=== PATIENT | female | born 1985 | race Caucasian/White ===

== ENCOUNTER 2018-03-20 06:07 | Inpatient (IN) | payer BC ==
[~2018-03-20] VITALS: Ht 167.6 cm; Wt 72.6 kg
[~2018-03-20 06:07] MED LIST: ACET-1718 PO; CALC-515 PO; IBUP800T37 PO; PREN1TAB50
[2018-03-20] MEDS ORDERED: LR(*) 1000 ML BAG 1,000 ML IV PRN (06:38)
[2018-03-20] MEDS ORDERED: OXYTOCIN 30 UNIT/D5LR 500 ML 500 ML IV PRN (06:38)
[2018-03-20] MEDS ORDERED: FAMOTIDINE(*) 20MG/50ML PREMIX 50 ML IVPB PRN (06:38)
[2018-03-20] MEDS ORDERED: DLR(*) 1000 ML BAG 1,000 ML IV PRN (06:38)
[2018-03-20] MEDS ORDERED: FENTANYL/ROPIVACAINE 100 ML BAG EPI PRN (06:40)
[2018-03-20] MEDS ORDERED: EPIDURAL KEYS XX PRN (06:40)
[2018-03-20] MEDS ORDERED: cefOXitin/DEX(*) 2GM/50ML PREM 50 ML IVPB PRN (06:40)
[2018-03-20] MEDS ORDERED: BUPIVACAINE 0.5% INJ 30ML VIAL EPI PRN (06:40)
[2018-03-20] MEDS ORDERED: FLUSH 10 ML SYR IVP PRN (06:40)
[2018-03-20] MEDS ORDERED: fentaNYL CITR 100 MCG/2 ML AMP IT PRN (06:40)
[2018-03-20] MEDS ORDERED: ePHEDrine 25 MG/5 ML DISP.SYR IVP PRN (06:40)
[2018-03-20] MEDS ORDERED: fentaNYL CITR 100 MCG/2 ML AMP IVP PRN (06:40)
[2018-03-20] MEDS ORDERED: METOCLOPRAMIDE 10 MG/2 ML SDV IVP PRN (06:40)
[2018-03-20] MEDS ORDERED: LIDOCAINE 1% LOCAL 300 MG/30ML INJ PRN (06:40)
[2018-03-20] MEDS ORDERED: BUPIVACAINE 0.25% MPF INJ EPI PRN (06:40)
[2018-03-20] MEDS ORDERED: LIDO/EPI 2% MPF 1:200,000 20ML EPI PRN (06:40)
[2018-03-20] MEDS ORDERED: LIDOCAINE/PF 2% 200MG/10ML AMP 200 MG/10 ML AMPUL EPI PRN (06:40)
[2018-03-20 06:53] LABS: PLATELET COUNT, AUTOMATED 252 K/uL (150-450)
[2018-03-20] MEDS ORDERED: METHYLERGONOVINE MAL 0.2MG/ML ONE (06:56)
[2018-03-20] MEDS ORDERED: OXYTOCIN 30 UNIT/D5LR 500 ML 500 ML ONE (06:56)
[2018-03-20 07:15] VITALS: BP 111/53; Ht 167.6 cm; Wt 72.6 kg
[2018-03-20] MEDS ORDERED: BENZOCAINE 20% 60 ML BTL TP PRN (07:45)
[2018-03-20] MEDS ORDERED: ACETAMINOPHEN 325 MG TAB PO PRN (07:45)
[2018-03-20] MEDS ORDERED: LANOLIN OINT 7 GM TUBE TP PRN (07:45)
[2018-03-20] MEDS ORDERED: MAGNESIUM HYDROXIDE* 30ML UDCP PO PRN (07:45)
[2018-03-20] MEDS ORDERED: DIPHTH/TETANUS/ACEL. PERTUSSIS IM ONE (07:45)
[2018-03-20] MEDS ORDERED: MEASLES,MUMP,RUBELLA VAC 0.5ML SC ONE (07:45)
[2018-03-20] MEDS ORDERED: GLYCERIN/WITCH HAZEL LEAF 1 PK TOP PRN (07:45)
[2018-03-20] MEDS ORDERED: INFLUENZA VIRUS VAC 0.5 ML SYR IM ONLY ONE (07:45)
[2018-03-20] MEDS ORDERED: HYDROCORTISONE 2.5% CR 30GM TB PR PRN (07:45)
--- NOTE | 2018-03-20 07:49 | History & Physical ---
History of Present Illness Age of Patient: 32 : 2 Para or TPAL: 1001 EDC per LMP: Apr 07, 2018 Estimated Gestational Age: 37.3 Chief Complaint contractions History of Present Illness The patient is a 32 year old 2 para 1001 admitted at 37 3/7 weeks estimated gestational age with an estimated date of delivery04/07/18 . Patient is admitted with complaint of contractions . No vaginal bleeding. Good movement and regular contractions. Contractions started at 0430, no fluid loss. She was evaluated for active labor. She had an uncomplicated course. Her record was reviewed. History Allergies: Coded Allergies: Sulfa (Sulfonamide Antibiotics) (Verified Allergy, Mild, 05/26/14) Med Rec Home Meds Reported Medications Calcium Carbonate (TUMS) 200 Mg Tab.chew, 200 MG PO, TAB.CHEW 03/08/18 Vit #76/Iron,Carb/FA (Pnv 29-1 Tablet) 1 Each Tablet, 1 09/02/16 Exam General Exam Cardiovascular: Regular Rate and Rhythm Respiratory: Clear to Auscultation Abdomen: Gravid - Non-Tender Extremities: No Edema Cervical Dialation: 9 Cervical Effacement (%): 100 Cervical Consistency: Soft Cervical Position: Anterior Station: 0 (RN) Presentation: Vertex Uterine Contractions(Q min): 3 Uterine Contraction Strength: Strong Fetus Heart Tones: 120 Heart Tone Variabilty: Moderate FHT Decelerations: Variable FHT Category: II Medical Decision Making Data Points Result Diagram: 03/20/18 0646 Assessment and Plan Problems: (1) Active labor at term Status: Acute Assessment & Plan: active labor unable to sit for epidural will allo w to labor and then push when complete. Anticipated vaginal delivery. Copies to: NICK NERI MD, JOHN MD Mar 20, 2018 07:49
--- NOTE | 2018-03-20 07:53 | OB Delivery Note ---
Delivery Note Vaginal Delivery Type: Spont. Vaginal Delivery Delivery Date: Mar 20, 2018 Delivery Time: 06:58 Estimated Gestational Age(wks): 37.3 Delivery Anesthesia: Local Sex: Male Weight (gms): 2902 Apgars: 1 Minute (7), 5 Minute (8) Repair Needed: Laceration, Superficial, Vaginal, Labial Estimated Blood Loss: 300 Notes: active labor when arrived unable to sit for epidural, progressed to complete allowed to push, delivered over intact perineum. Spontaneous cry and movement of all 4 extremities. Cord clamped x2 and cut, placenta delivered intact. repair with 3-0 vicryl in usual fashion Color Corrector in Attendence: No Copies to: NICK NERI MD, JOHN MD Mar 20, 2018 07:52
[2018-03-20] MEDS ORDERED: HYDR2TAB4 PO (08:02)
[2018-03-20] MEDS ORDERED: IBUP800T37 PO (08:02)
--- NOTE | 2018-03-20 08:04 | OB/GYN Discharge Summary ---
Discharge Summary Reason for Hosp/Final Diag: (1) Active labor at term Status: Resolved (2) care following vaginal delivery Status: Acute Hospital Course & Plan: Vaginal delivery on day 1, Pain controlled, Tolerating diet and activity. Baby . Normal lochia. Weight (Pounds): 170 Result Diagram: 03/20/18 0646 Condition: Improved Discharge: Home, Self Intermediate Meds Active Scripts Ibuprofen (IBUPROFEN) 800 Mg Tablet, 1 TAB PO Q8H, #30 TAB 0 Refills Take with food every 8 hours. Prov:NICK DOE MD 03/20/18 Hydromorphone Hcl (HYDROMORPHONE HCL) 2 Mg Tablet, 2-4 MG PO Q4H for PAIN, #20 TAB 0 Refills Prov:NICK DOE MD 03/20/18 Reported Medications Calcium Carbonate (TUMS) 200 Mg Tab.chew, 200 MG PO, TAB.CHEW 03/08/18 Vit #76/Iron,Carb/FA (Pnv 29-1 Tablet) 1 Each Tablet, 1 09/02/16 Follow up with: Dr. Doe [phone] Follow up in: 6 wks PP or PO Discharge Diet: As Tolerates Discharge Activity: Pelvic Rest Copies to: NICK DOE MD, JOHN MD Mar 20, 2018 08:04
[2018-03-20] MEDS: MULTIVITAMINS (PRENATAL) TAB PO SCH (08:15)
[2018-03-20] MEDS: DOCUSATE CALCIUM 240 MG CAP PO SCH ×2 (08:15→22:19)
[2018-03-20] MEDS: IBUPROFEN 800 MG TAB PO SCH ×2 (08:15→18:00)
[2018-03-20] MEDS ORDERED: LIDOCAINE 1% LOCAL 300 MG/30ML 30 ML ONE (09:38)
[2018-03-20 10:03] VITALS: BP 112/57
[2018-03-20 12:17] VITALS: BP 128/67
[2018-03-20 15:40] VITALS: BP 111/56
[2018-03-20] MEDS: HYDROmorphone HCL 2 MG TAB PO PRN ×2 (15:55→22:18)
[2018-03-20 20:00] VITALS: BP 104/52
[2018-03-21 02:00] VITALS: BP 86/44
[2018-03-21] MEDS: IBUPROFEN 800 MG TAB PO SCH ×3 (02:15→18:36)
[2018-03-21 08:15] VITALS: BP 109/51
--- NOTE | 2018-03-21 10:05 | OB/GYN Progress Note ---
OB Subjective Progress Notes Subjective Pain controlled, Tolerating diet and activity. Baby . Normal lochia. GI: POS Flatus, NEG Nausea, NEG Vomiting : Voiding Well Pain: Mild OB Objective Physical Exam Vital Signs Date Time Temp Pulse Resp B/P (MAP) Pulse Ox O2 Delivery O2 Flow Rate FiO2 03/21/18 08:15 98.3 64 16 109/51 (70) 03/21/18 02:00 Room Air 03/20/18 12:17 92 Intake and Output 03/22/18 07:00 Intake Total 120 ml Balance 120 ml Intake Oral 120 ml Cardiovascular: Regular Rate and Rhythm Respiratory: Clear to Auscultation Abdomen: Fundus Firm Extremities: No Edema Result Diagram: 03/21/18 0533 Assessment and Plan Post Day: 1 HOSPITAL CNA Assessment: Stable HOSPITAL CNA Plan: Discharge Home Today Problems: (1) Active labor at term Status: Resolved (2) care following vaginal delivery Status: Acute Assessment & Plan: Pain controlled, Tolerating diet and activity. Baby . Normal lochia. NICK NERI MD Mar 21, 2018 10:05
[2018-03-21] MEDS: DOCUSATE CALCIUM 240 MG CAP PO SCH (10:41)
[2018-03-21] MEDS: MULTIVITAMINS (PRENATAL) TAB PO SCH (10:41)
[2018-03-21 11:29] VITALS: BP 108/56
[2018-03-21 16:58] VITALS: BP 108/64
== END 2018-03-21 18:35 | disposition home or self-care (01) | DRG 775 ==
LOC: OB 06:07
PROVIDERS: ADMIT Obstetrics & Gynecology; ATTEND Obstetrics & Gynecology
PROC: 10E0XZZ Delivery of Products of Conception, External Approach (ICD-10-PCS; principal; 2018-03-20)
PROC: 0HQ9XZZ Repair Perineum Skin, External Approach (ICD-10-PCS; 2018-03-20)
DX: O70.0 First degree perineal laceration during delivery (principal); Z37.0 Single live birth; Z3A.37 37 weeks gestation of pregnancy
CPT/HCPCS: 36415; 85025; 85027; 86850; 86900; 86901; J2001; J2590